=== PATIENT | male | born 2000 | race Caucasian/White ===

== ENCOUNTER 2022-06-04 15:10 | Emergency (ER) | payer OTHER ==
[2022-06-04] MEDS ORDERED: Acetaminophen 500 MG TAB ONE (16:08)
[2022-06-04] MEDS ORDERED: Ketorolac Tromethamine 30 MG/ML VIAL ONE (16:08)
[2022-06-04] MEDS ORDERED: Metoclopramide HCl 10 MG/2 ML VIAL ONE (17:24)
[2022-06-04] MEDS ORDERED: CAFFEINE IVPB SCH (18:30)
[2022-06-04] MEDS ORDERED: SODIUM BENZOATE IVPB SCH (18:30)
[2022-06-04] MEDS ORDERED: SODIUM CHLORIDE 0.9% IVPB SCH (18:30)
== END 2022-06-04 20:13 | disposition home or self-care (01) ==
LOC: CSHERS 15:10
DX: G97.1 Other reaction to spinal and lumbar puncture (principal); K21.9 Gastro-esophageal reflux disease without esophagitis
CPT/HCPCS: 96374; 96375; J0706; J1885; J2765; J7050